=== PATIENT | female | born 1965 | race Hispanic/Latino ===

== ENCOUNTER 2017-12-07 09:13 | Emergency (ER) | payer SELFPAY ==
[2017-12-07] MEDS ORDERED: DEXAMETHASONE 10 MG/ML VIAL ONE (10:16)
[2017-12-07] MEDS ORDERED: NA CHLORIDE 0.9% 1,000 ML ONE (10:17)
[2017-12-07] MEDS ORDERED: FAMOTIDINE 20 MG/2 ML VIAL IV ONE (10:17)
[2017-12-07] MEDS ORDERED: EPINEPHRINE/PF 1 MG/ML AMP ONE (10:19)
[2017-12-07] MEDS ORDERED: hydrOXYzine HCl 25 MG TAB ONE (11:42)
--- NOTE | 2017-12-07 12:16 | ER ---
Nurse's Notes [facility] Name: Griselda Zavala Age: 51 yrs Sex: Female : 1965 Arrival Date: 12/07/2017 Time: 09:17 Bed 14 Private MD: Diagnosis: Acute Allergic Reaction to wasp sting Presentation: 12/07 09:25 Presenting complaint: Patient states: Stung on right hand x2 on right hand by wasp hb yesterday, c/o right hand pain and swelling, SOB, dizziness, and right eye swelling that started today . Transition of care: patient was not received from another setting of care. Onset of symptoms was December 06, 2017. Risk Assessment: Do you want to hurt yourself or someone else? Patient reports no desire to harm self or others. 09:25 Method Of Arrival: Ambulatory hb 09:25 Acuity: REY 3 hb 10:00 Initial Sepsis Screen: Does the patient meet any 2 criteria? No. Patient's initial jl7 sepsis screen is negative. Does the patient have a suspected source of infection? No. Patient's initial sepsis screen is negative. Care prior to arrival: None. 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 - Social history:: Smoking status: . - Family history:: not pertinent. - Ebola Screening: : No symptoms or risks identified at this time. - Hospitalizations: : No recent hospitalization is reported. Screenin:30 Abuse screen: Denies threats or abuse. Denies injuries from another. Nutritional jl7 screening: No deficits noted. Tuberculosis screening: No symptoms or risk factors identified. Fall Risk IV access (20 points). Total Eden Fall Scale indicates No Risk (0-24 pts). Assessment: 10:00 General: Appears in no apparent distress. uncomfortable, Behavior is cooperative, jl7 anxious. Pain: Complains of pain in right arm Pain radiates to right arm Pain currently is 7 out of 10 on a pain scale. Quality of pain is described as throbbing, Pain began 1 day ago. Is continuous. Neuro: Level of Consciousness is awake, alert, obeys commands, Oriented to person, place, time, situation. Cardiovascular: Heart tones S1 S2 present Patient's skin is warm and dry. Rhythm is sinus rhythm. Respiratory: Airway is patent Respiratory effort is even, unlabored, Respiratory pattern is regular, symmetrical, Breath sounds are clear bilaterally. GI: No signs and/or symptoms were reported involving the gastrointestinal system. : No signs and/or symptoms were reported regarding the genitourinary system. EENT: No signs and/or symptoms were reported regarding the EENT system. Derm: Skin is pink, warm \T\ dry. Musculoskeletal: Swelling present in dorsal aspect of right forearm, right wrist and right hand. 11:00 Reassessment: Patient and/or family updated on plan of care and expected duration. Pain jl7 level reassessed. Patient is alert, oriented x 3, equal unlabored respirations, skin warm/dry/pink. 11:30 Reassessment: Pt c/o itching at the right hand. Provider notified, see MAR for orders. jl7 12:20 Reassessment: Patient states feeling better. Patient states symptoms have improved. jl7 Vital Signs: 09:26 BP 149 / 88; Pulse 96; Resp 17; Pulse Ox 97% on R/A; Pain 5/10; hb 10:00 BP 128 / 93; Pulse 83; Resp 16; Pulse Ox 97% on R/A; jl7 10:30 BP 131 / 96; Pulse 79; Resp 16; Pulse Ox 99% on 2 lpm NC; jl7 11:00 BP 128 / 89; Pulse 68; Resp 16; Pulse Ox 100% on 2 lpm NC; jl7 11:43 BP 127 / 68; Pulse 64; Resp 16; Pulse Ox 100% on 2 lpm NC; jl7 12:27 BP 127 / 68; Pulse 65; Resp 16; Pulse Ox 100% on R/A; jl7 ED Course: 09:17 Patient arrived in ED. jb7 09:26 Triage completed. hb 09:27 Arm band placed on left wrist. hb 09:33 Michael Ingram RN is Primary Nurse. jl7 09:40 Adam Ferrera MD is Attending Physician. wa 10:00 Patient has correct armband on for positive identification. Bed in low position. Call jl7 light in reach. Side rails up X 1. vehicle monitor technician on. Pulse ox on. NIBP on. Warm blanket given. 10:00 Inserted saline lock: 20 gauge in left antecubital area, using aseptic technique. jl7 12:28 No provider procedures requiring assistance completed. IV discontinued, intact, jl7 bleeding controlled, No redness/swelling at site. Pressure dressing applied. Administered Medications: 10:22 Drug: NS 0.9% 1000 ml Route: IV; Rate: 1000 ml; Site: left antecubital; jl7 11:31 Follow up: IV Status: Completed infusion jl7 10:23 Drug: Pepcid 20 mg Route: IVP; Site: right antecubital; jl7 11:30 Follow up: Response: No adverse reaction jl7 10:24 Drug: EPINEPHrine 1mg/mL 1:1,000 0.3 ml Route: Sub-Q; Site: left upper arm; jl7 11:31 Follow up: Response: No adverse reaction jl7 10:25 Drug: Decadron - Dexamethasone 10 mg Route: IVP; Site: left antecubital; jl7 11:31 Follow up: Response: No adverse reaction jl7 11:40 Drug: Atarax 50 mg Route: PO; jl7 12:27 Follow up: Response: No adverse reaction; Marked relief of symptoms jl7 Outcome: 12:15 Discharge ordered by . rei 12:28 Discharged to home ambulatory. jl7 12:28 Condition: improved 12:28 Discharge instructions given to patient, Instructed on discharge instructions, follow up and referral plans. medication usage, Demonstrated understanding of instructions, follow-up care, medications, Prescriptions given X 3. 12:37 Patient left the ED. jl7 Signatures: Whitney Shahid RN RN Michael Ingram RN RN jl7 Bryant, Jason jb7 Appiah, William, MD MD wa Corrections: (The following items were deleted from the chart) 10:35 10:22 NS 0.9% 1000 ml IV at 1000 ml in right antecubital jl7 jl7 11:31 02:40 EPINEPHrine 1mg/mL 1:1,000 0.3 ml Sub-Q in left upper arm jlLois jl7
--- NOTE | 2017-12-07 12:16 | EDPHYS ---
Physician Documentation [facility] Name: Griselda Zavala Age: 51 yrs Sex: Female : 1965 Arrival Date: 12/07/2017 Time: 09:17 Bed 14 Private MD: ED Physician Adam Ferrera HPI: 12/07 11:55 This 51 yrs old Female presents to ER via Ambulatory with complaints of wa Breathing Difficulty, Insect Bite. 11:55 The patient has shortness of breath at rest, that occurred at home, c/o wasp bite to wa dorsum R hand yesterday. today worsening redness and swelling. also sensation of mild SOB. Onset: The symptoms/episode began/occurred today. Duration: The symptoms are continuous, and are steadily getting worse. The patient's shortness of breath has no apparent modifying factors. Associated signs and symptoms: Pertinent positives: R hand swelling from a wasp bite. Severity of symptoms: At their worst the symptoms were moderate in the emergency department the symptoms are worse. The patient has not experienced similar symptoms in the past. The patient has not recently seen a physician. 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 - Social history:: Smoking status: . - Family history:: not pertinent. - Ebola Screening: : No symptoms or risks identified at this time. - Hospitalizations: : No recent hospitalization is reported. ROS: 11:57 Constitutional: Negative for fever, chills, and weight loss, Eyes: Negative for injury, wa pain, redness, and discharge, ENT: Negative for injury, pain, and discharge, Neck: Negative for injury, pain, and swelling, Cardiovascular: Negative for chest pain, palpitations, and edema, Abdomen/GI: Negative for abdominal pain, nausea, vomiting, diarrhea, and constipation, Back: Negative for injury and pain, : Negative for injury, bleeding, discharge, and swelling, MS/Extremity: Negative for injury and deformity, Neuro: Negative for headache, weakness, numbness, tingling, and seizure, Psych: Negative for depression, anxiety, suicide ideation, homicidal ideation, and hallucinations. 11:57 Respiratory: Positive for shortness of breath, at rest. Negative for cough, wheezing. 11:57 Skin: Positive for erythema, swelling, of the right hand. Exam: 11:58 Constitutional: This is a well developed, well nourished patient who is awake, alert, wa and in no acute distress. Head/Face: Normocephalic, atraumatic. Eyes: Pupils equal round and reactive to light, extra-ocular motions intact. Lids and lashes normal. Conjunctiva and sclera are non-icteric and not injected. Cornea within normal limits. Periorbital areas with no swelling, redness, or edema. ENT: Nares patent. No nasal discharge, no septal abnormalities noted. Tympanic membranes are normal and external auditory canals are clear. Oropharynx with no redness, swelling, or masses, exudates, or evidence of obstruction, uvula midline. Mucous membranes moist. Neck: Trachea midline, no thyromegaly or masses palpated, and no cervical lymphadenopathy. Supple, full range of motion without nuchal rigidity, or vertebral point tenderness. No Meningismus. Chest/axilla: Normal chest wall appearance and motion. Nontender with no deformity. No lesions are appreciated. Cardiovascular: Regular rate and rhythm with a normal S1 and S2. No gallops, murmurs, or rubs. Normal PMI, no JVD. No pulse deficits. Respiratory: Lungs have equal breath sounds bilaterally, clear to auscultation and percussion. No rales, rhonchi or wheezes noted. No increased work of breathing, no retractions or nasal flaring. Abdomen/GI: Soft, non-tender, with normal bowel sounds. No distension or tympany. No guarding or rebound. No evidence of tenderness throughout. Back: No spinal tenderness. No costovertebral tenderness. Full range of motion. MS/ Extremity: Pulses equal, no cyanosis. Neurovascular intact. Full, normal range of motion. Neuro: Awake and alert, GCS 15, oriented to person, place, time, and situation. Cranial nerves II-XII grossly intact. Motor strength 5/5 in all extremities. Sensory grossly intact. Cerebellar exam normal. Normal gait. Psych: Awake, alert, with orientation to person, place and time. Behavior, mood, and affect are within normal limits. 11:58 Skin: R dorsum hand noted swelling with redness. extends slightly proximal R wrist. Vital Signs: 09:26 BP 149 / 88; Pulse 96; Resp 17; Pulse Ox 97% on R/A; Pain 5/10; hb 10:00 BP 128 / 93; Pulse 83; Resp 16; Pulse Ox 97% on R/A; jl7 10:30 BP 131 / 96; Pulse 79; Resp 16; Pulse Ox 99% on 2 lpm NC; jl7 11:00 BP 128 / 89; Pulse 68; Resp 16; Pulse Ox 100% on 2 lpm NC; jl7 11:43 BP 127 / 68; Pulse 64; Resp 16; Pulse Ox 100% on 2 lpm NC; jl7 12:27 BP 127 / 68; Pulse 65; Resp 16; Pulse Ox 100% on R/A; jl7 MDM: 09:40 Patient medically screened. ak 11:59 Differential diagnosis: allergic reaction. allergic to benadryl. will give give SQ epi wa and decaron. fluid bolus. atarax. reassess. no retained stingers noted on visual inspection. 12:13 Data reviewed: vital signs, nurses notes. Response to treatment: the patient's symptoms wa have markedly improved after treatment. 12/07 10:09 Order name: IV Start; Complete Time: 10:34 ak 12/07 10:09 Order name: Oxygen Per Protocol; Complete Time: : ak 12/07 10:09 Order name: Cardiac monitoring; Complete Time: : ak 12/07 11:11 Order name: Sling: place R U E; Complete Time: 11:30 ak Administered Medications: 10:22 Drug: NS 0.9% 1000 ml Route: IV; Rate: 1000 ml; Site: left antecubital; jl7 11:31 Follow up: IV Status: Completed infusion 7 10:23 Drug: Pepcid 20 mg Route: IVP; Site: right antecubital; jl7 11:30 Follow up: Response: No adverse reaction jl7 10:24 Drug: EPINEPHrine 1mg/mL 1:1,000 0.3 ml Route: Sub-Q; Site: left upper arm; jl7 11:31 Follow up: Response: No adverse reaction jl7 10:25 Drug: Decadron - Dexamethasone 10 mg Route: IVP; Site: left antecubital; jl7 11:31 Follow up: Response: No adverse reaction [facility] 11:40 Drug: Atarax 50 mg Route: PO; jl7 12:27 Follow up: Response: No adverse reaction; Marked relief of symptoms jl7 Disposition: 12/07/17 12:15 Discharged to Home. Impression: Acute Allergic Reaction to wasp sting. - Condition is Stable. - Prescriptions for hydroxyzine HCl 50 mg Oral tablet - take 1 tablet by ORAL route 4 times per day; 30 tablet. Prednisone 20 mg Oral Tablet - take 2 tablet by ORAL route once daily for 5 days; 10 tablet. EpiPen 0.3 mg Injection auto- injector - inject 1 pen by INTRAMUSCULAR route one time Inject into the outer portion of the thigh, through clothing if necessary. Indicated in the emergency treatment of allergic reactions; 1 box. - Medication Reconciliation Form, Thank You Letter, Antibiotic Education, Prescription Opioid Use form. - Follow up: Private Physician; When: 2 - 3 days; Reason: Re-evaluation by your physician. - Problem is new. - Symptoms have improved. - Notes: return to ED for worsening. take medicines as prescribed. use epipen in emergent situation as discussed Signatures: Whitney Shahid RN RN Michael Ingram RN RN jl7 Adam Ferrera MD MD wa Corrections: (The following items were deleted from the chart) 12:37 12:15 12/07/2017 12:15 Discharged to Home. Impression: Acute Allergic Reaction to wasp jl7 sting. Condition is Stable. Forms are Medication Reconciliation Form, Thank You Letter, Antibiotic Education, Prescription Opioid Use. Follow up: Private Physician; When: 2 - 3 days; Reason: Re-evaluation by your physician. Problem is new. Symptoms have improved. wa
[2017-12-07 12:45] VITALS: O2SAT 100
[2017-12-07 12:46] VITALS: BP 127/68
== END 2017-12-07 12:37 | disposition home or self-care (01) ==
LOC: ER 09:13
DX: T63.481A Toxic effect of venom of other arthropod, accidental (unintentional), initial encounter (principal); K50.90 Crohn's disease, unspecified, without complications; Y92.9 Unspecified place or not applicable; Z88.8 Allergy status to other drugs, medicaments and biological substances
CPT/HCPCS: 96372; 99284; J0171; J1100; J7030

== ENCOUNTER 2018-10-10 18:39 | Emergency (ER) | payer SELFPAY ==
--- NOTE | 2018-10-10 19:47 | EDPHYS ---
Physician Documentation [facility] Name: Griselda Zavala Age: 52 yrs Sex: Female : 1965 Arrival Date: 10/10/2018 Time: 18:41 Bed 18 Private MD: ED Physician Nik Atkins HPI: 10/10 19:41 This 52 yrs old Female presents to ER via Ambulatory with complaints of ps1 foreign body in foot. 19:41 patient has had a small piece of glass in foot for over a week. Daughter tried to ps1 remove it at home and was unable. Has granulation tissue and pain with ambulating on the lateral aspect of the right heel. Pain rated as moderate and then worse with movement. No fever or cellulitis.. 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 - Social history:: Smoking status: Patient uses tobacco products, smokes one pack cigarettes per day. - Ebola Screening: : Patient denies travel to an Ebola-affected area in the 21 days before illness onset. ROS: 19:41 Constitutional: Negative for fever, chills, and weight loss, Eyes: Negative for injury, ps1 pain, redness, and discharge, ENT: Negative for injury, pain, and discharge, Cardiovascular: Negative for chest pain, palpitations, and edema, Respiratory: Negative for shortness of breath, cough, wheezing, and pleuritic chest pain, Abdomen/GI: Negative for abdominal pain, nausea, vomiting, diarrhea, and constipation. 19:41 Skin: Positive for possible FB, glass. Exam: 19:41 Constitutional: This is a well developed, well nourished patient who is awake, alert, ps1 and in no acute distress. Head/Face: Normocephalic, atraumatic. Eyes: Pupils equal round and reactive to light, extra-ocular motions intact. Lids and lashes normal. Conjunctiva and sclera are non-icteric and not injected. Chest/axilla: Normal chest wall appearance and motion. Nontender with no deformity. No lesions are appreciated. Cardiovascular: Regular rate and rhythm. No gallops, murmurs, or rubs. Normal PMI, no JVD. No pulse deficits. Respiratory: Lungs have equal breath sounds bilaterally, clear to auscultation and percussion. No rales, rhonchi or wheezes noted. No increased work of breathing, no retractions or nasal flaring. Abdomen/GI: Soft, non-tender, with normal bowel sounds. No distension or tympany. No guarding or rebound. No evidence of tenderness throughout. 19:41 Skin: examined foot with administration of 3mL of lidocaine with epinephrine. No obvious FB apparent. Has surrounding granulation tissue. No signs of cellulitis. . Vital Signs: 18:45 BP 156 / 102; Pulse 95; Resp 18; Temp 97.6; Pulse Ox 95% on R/A; Weight 65.77 kg (R); aj1 Height 5 ft. 5 in. (165.10 cm) (R); Pain 4/10; 18:45 Body Mass Index 24.13 (65.77 kg, 165.10 cm) aj MDM: 19:17 Patient medically screened. ps1 19:41 Data reviewed: vital signs, nurses notes, and as a result, I will discharge patient. ps1 10/10 20:11 Order name: Dressing - Wound; Complete Time: 20:11 tl2 10/10 20:11 Order name: Gloves, Sterile; Complete Time: 20:12 tl2 10/10 20:11 Order name: I\T\D Setup; Complete Time: 20:12 tl2 10/10 20:11 Order name: Scalpel; Complete Time: 20:12 tl2 Administered Medications: 19:25 Drug: Lidocaine-Epinephrine -1%: (1:100,000) 1 application Volume: 20 ml; Route: tl2 Infiltration; Disposition: 10/10/18 19:46 Discharged to Home. Impression: Pain in right foot. - Condition is Stable. - Discharge Instructions: Foreign Body. - Medication Reconciliation Form, Thank You Letter, Antibiotic Education, Prescription Opioid Use form. - Follow up: Private Physician; When: As needed; Reason: Recheck today's complaints, Continuance of care, Re-evaluation by your physician. - Problem is an ongoing problem. - Symptoms are unchanged. Signatures: Oumou Davidson RN RN aj1 Ivy Brand RN RN tl2 Nik Atkins MD MD ps1 Corrections: (The following items were deleted from the chart) 20:14 19:46 10/10/2018 19:46 Discharged to Home. Impression: Pain in right foot. Condition is tl2 Stable. Forms are Medication Reconciliation Form, Thank You Letter, Antibiotic Education, Prescription Opioid Use. Follow up: Private Physician; When: As needed; Reason: Recheck today's complaints, Continuance of care, Re-evaluation by your physician. Problem is an ongoing problem. Symptoms are unchanged. ps1
--- NOTE | 2018-10-10 19:47 | ER ---
Nurse's Notes [facility] Name: Griselda Zavala Age: 52 yrs Sex: Female : 1965 Arrival Date: 10/10/2018 Time: 18:41 Bed 18 Private MD: Diagnosis: Pain in right foot Presentation: 10/10 18:43 Presenting complaint: Patient states: "I was at work all weekend and I wear tennis aj1 shoes and my foot was hurting and there was like a big boil and I asked my daughter to come take a look at it and she said that there was a piece of glass in it, but she couldn't get it out". Transition of care: patient was not received from another setting of care. Onset of symptoms was September 2018. Risk Assessment: Do you want to hurt yourself or someone else? Patient reports no desire to harm self or others. Initial Sepsis Screen: Does the patient meet any 2 criteria? HR > 90 bpm. No. Patient's initial sepsis screen is negative. Does the patient have a suspected source of infection? No. Patient's initial sepsis screen is negative. Care prior to arrival: None. 18:43 Method Of Arrival: Ambulatory aj1 18:43 Acuity: REY 4 aj1 Triage Assessment: 18:45 General: Appears in no apparent distress. comfortable, Behavior is calm, cooperative, aj1 appropriate for age. Pain: Complains of pain in lateral side of right heel Pain currently is 4 out of 10 on a pain scale. Neuro: Level of Consciousness is awake, alert, obeys commands. Cardiovascular: Patient's skin is warm and dry. Respiratory: Airway is patent Respiratory effort is even, unlabored, Respiratory pattern is regular, symmetrical. 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 - Social history:: Smoking status: Patient uses tobacco products, smokes one pack cigarettes per day. - Ebola Screening: : Patient denies travel to an Ebola-affected area in the 21 days before illness onset. Screenin:10 Abuse screen: Denies threats or abuse. Nutritional screening: No deficits noted. tl2 Tuberculosis screening: No symptoms or risk factors identified. Fall Risk None identified. Assessment: 19:10 General: Appears in no apparent distress. uncomfortable, Behavior is calm, cooperative, tl2 appropriate for age. Pain: Complains of pain in lateral side of right heel. Neuro: Level of Consciousness is awake, alert, obeys commands, Oriented to person, place, time, situation. Respiratory: Airway is patent Respiratory effort is even, unlabored, Respiratory pattern is regular, symmetrical. GI: No signs and/or symptoms were reported involving the gastrointestinal system. Derm: Skin is pink, warm \\T\\ dry. Injury Description: possible foreign body in foot. 20:10 Reassessment: Patient appears in no apparent distress at this time. Patient and/or tl2 family updated on plan of care and expected duration. Pain level reassessed. pt verbalized understanding of discharge instructions, need for follow up and wound care. Vital Signs: 18:45 BP 156 / 102; Pulse 95; Resp 18; Temp 97.6; Pulse Ox 95% on R/A; Weight 65.77 kg (R); aj1 Height 5 ft. 5 in. (165.10 cm) (R); Pain 4/10; 18:45 Body Mass Index 24.13 (65.77 kg, 165.10 cm) aj1 ED Course: 18:41 Patient arrived in ED. mr 18:45 Triage completed. aj1 18:45 Arm band placed on Patient placed in an exam room. aj1 19:03 Nik Atkins MD is Attending Physician. ps1 19:10 Patient has correct armband on for positive identification. Bed in low position. Call tl2 light in reach. Side rails up X 1. 19:25 Assist provider with I \\T\\ D: of an abscess on right heel Set up I\\T\\D tray. Performed by tl 2 Nik Atkins MD Dressing with Neosporin and 4X4s, Patient tolerated well. Patient did not have IV access during this emergency room visit. 20:07 Ivy Brand RN is Primary Nurse. tl2 Administered Medications: 19:25 Drug: Lidocaine-Epinephrine -1%: (1:100,000) 1 application Volume: 20 ml; Route: tl2 Infiltration; Outcome: 19:46 Discharge ordered by . ps1 20:12 Discharged to home ambulatory. tl2 20:12 Condition: stable 20:12 Discharge instructions given to patient, Instructed on discharge instructions, follow up and referral plans. wound care, Demonstrated understanding of instructions, follow-up care, wound care. 20:14 Patient left the ED. tl2 Signatures: Oumou Davidson RN RN aj1 Janel Enriquez Taylor, RN RN tl2 Nik Atkins MD MD ps1
[2018-10-10 20:41] VITALS: BP 156/102; TEMP 97.6; O2SAT 95
== END 2018-10-10 20:14 | disposition home or self-care (01) ==
LOC: ER 18:39
DX: M79.671 Pain in right foot (principal); Z88.8 Allergy status to other drugs, medicaments and biological substances; F17.210 Nicotine dependence, cigarettes, uncomplicated
CPT/HCPCS: 99283